=== PATIENT | male | born 1950 | race Asian ===

== ENCOUNTER 2017-12-07 06:34 | Day surgery (SDC) | payer BC, OTHER ==
[2017-12-07] MEDS ORDERED: FENTAnyl 50 MCG/ML VIAL (09:03)
[2017-12-07] MEDS ORDERED: MIDAZOLAM 1 MG/ML 2 ML INJ (09:04)
== END 2017-12-07 11:21 | disposition home or self-care (01) ==
LOC: GIL 06:34
DX: K29.60 Other gastritis without bleeding (principal); K44.9 Diaphragmatic hernia without obstruction or gangrene; K21.9 Gastro-esophageal reflux disease without esophagitis; I10 Essential (primary) hypertension
CPT/HCPCS: 43239; 88305